=== PATIENT | female | born 1960 | race Caucasian/White ===

== ENCOUNTER 2018-05-14 19:37 | Emergency (ER) | payer SELFPAY ==
--- NOTE | 2018-05-14 21:21 | ER ---
Nurse's Notes [facility] Name: Nicole Hoyos Age: 58 yrs Sex: Female : 1960 Arrival Date: 05/14/2018 Time: 19:39 Bed 16 Private MD: Mary Lou Diez H Diagnosis: Grieving Presentation: 05/14 19:49 Presenting complaint: Patient states: "I was told to say I was suicidal so I could be lp1 seen by a doctor"; Patient states recently in this hospital yesterday and requesting to be put back on mediations to help her deal with 's ; Denies wanting to hurt self but concerned for her health if not prescribed medications of Prozac, Ambien, Haldol, Abilify; Hx of depression and treated by [facility]. Transition of care: patient was not received from another setting of care. Onset of symptoms was May 14, 2018. Risk Assessment: Do you want to hurt yourself or someone else? Patient reports no desire to harm self or others. Initial Sepsis Screen: Does the patient meet any 2 criteria? No. Patient's initial sepsis screen is negative. Does the patient have a suspected source of infection? No. Patient's initial sepsis screen is negative. Care prior to arrival: None. 19:49 Method Of Arrival: Ambulatory lp1 19:49 Acuity: DASHAWN 2 lp1 Triage Assessment: 22:17 General: Appears. aa1 Historical: - Allergies: 19:53 Sulfa (Sulfonamide Antibiotics); lp1 - Home Meds: 19:53 None [Active]; lp1 - PMHx: 19:53 Anxiety; Depression; Schizophrenia; lp1 - PSHx: 19:53 Appendectomy; Tonsillectomy; lp1 - Immunization history:: Adult Immunizations up to date. - Social history:: Smoking status: Patient/guardian denies using tobacco. - Ebola Screening: : No symptoms or risks identified at this time. Screenin:15 Abuse screen: Denies threats or abuse. Denies injuries from another. Nutritional aa1 screening: No deficits noted. Tuberculosis screening: No symptoms or risk factors identified. Fall Risk None identified. Assessment: 20:15 Reassessment: Pt reports that she does not wish to harm herself. States she is just aa1 grieving and is upset over the loss of her and would like to be prescribed medication to help with her emotions and see a psychiatrist on an outpatient basis. General: Appears in no apparent distress. comfortable, Behavior is calm, cooperative, appropriate for age. Pain: Denies pain. Neuro: Level of Consciousness is awake, alert, obeys commands, Oriented to person, place, time, situation, Moves all extremities. Speech is normal. Respiratory: Airway is patent Respiratory effort is even, unlabored, Respiratory pattern is regular, symmetrical. GI: No signs and/or symptoms were reported involving the gastrointestinal system. : No signs and/or symptoms were reported regarding the genitourinary system. EENT: No signs and/or symptoms were reported regarding the EENT system. Derm: Skin is intact, is healthy with good turgor, Skin is pink, warm \\T\\ dry. Musculoskeletal: Circulation, motion, and sensation intact. Capillary refill < 3 seconds. 21:30 Reassessment: Patient appears in no apparent distress at this time. Patient is alert, aa1 oriented x 3, equal unlabored respirations, skin warm/dry/pink. Pt again denies any thoughts of harming herself or others. Reports she has strong family support system and will f/u with [facility] as outpatient to continue her medications. Denies questions or concerns regarding d/c \\T\\ f/u instructions. Psych: 20:15 Subjective: Patient's mood is sad, Delusions are denied, Hallucinations are denied aa1 Having thoughts of grief but denies suicidal or homicidal thoughts. Objective: Patient is cooperative, Speech is normal, Affect is appropriate. Suicide Risk Assessment: Sad Person Scale: Sex of patient: Female: Score 0 points. Age of patient: Score 0 point if patient falls outside of specified age parameters. Depression: Score 1 point if signs of depression are present. Previous Attempt: Score 0 point if patient has not previously attempted suicide. Substance Abuse: Score 0 point if patient does not abuse alcohol or drugs. Rational Thinking: Score 0 point if patient has rational thinking. Social Support: Score 0 if social support is present/available. Organized Plan: Score 0 if patient did not have an organized plan in place. Relationship: Score 1 point if patient is , , , or for a single male Chronic Sickness: Score 0 point if patient does not have a chronic illness, debilitating, or severe disorder. TOTAL POINTS: If total points are 0-2, proposed clinical action is to send home with follow-up. Safety Checks: Door is open. Pt denies substance abuse. Commitment: n/a. Vital Signs: 19:53 BP 140 / 101; Pulse 83; Resp 18; Temp 98.6; Pulse Ox 99% on R/A; Weight 90.72 kg; lp1 Height 5 ft. 10 in. (177.80 cm); 21:30 BP 146 / 82; Pulse 73; Resp 18; Pulse Ox 99% on R/A; aa1 19:53 Body Mass Index 28.70 (90.72 kg, 177.80 cm) lp1 ED Course: 19:39 Patient arrived in ED. es 19:40 Mary Lou Diez DO is Private Physician. es 19:52 Triage completed. lp1 19:54 Arm band placed on right wrist. lp1 19:59 Graham Cruz MD is Attending Physician. ps1 20:15 Patient has correct armband on for positive identification. Bed in low position. Call aa1 light in reach. Pulse ox on. NIBP on. 21:18 Mary Lou Diez DO is Referral Physician. ps1 21:30 Caryl Martinez, RN is Primary Nurse. aa1 21:30 No provider procedures requiring assistance completed. Patient did not have IV access aa1 during this emergency room visit. Administered Medications: 21:30 Drug: Ativan 1 mg Route: PO; aa1 21:30 Follow up: Response: No adverse reaction; Medication administered at discharge. aa1 Outcome: 21:20 Discharge ordered by . ps1 21:30 Discharged to home ambulatory. aa1 21:30 Condition: good 21:30 Discharge instructions given to patient, Instructed on discharge instructions, follow up and referral plans. medication usage, Demonstrated understanding of instructions, follow-up care, medications, Prescriptions given X 1. 21:31 Patient left the ED. aa1 Signatures: Caryl Martinez, RN RN aa1 Rosa Urena Laura, RN RN lp1 Graham Cruz MD MD ps1
--- NOTE | 2018-05-14 21:21 | EDPHYS ---
Physician Documentation [facility] Name: Nicole Hoyos Age: 58 yrs Sex: Female : 1960 Arrival Date: 05/14/2018 Time: 19:39 Bed 16 Private MD: Mary Lou Diez H ED Physician Graham Cruz HPI: 05/14 21:08 This 58 yrs old Female presents to ER via Ambulatory with complaints of ps1 grieving. 21:08 patient's in ICU yesterday. Patient has a previous psychiatric history in ps1 which she does not take her medications 2/2 coordinating transporation. She states that the pain of grieving is considerable. She was on the phone and told to tell the hospital that she was wanting to hurt herself so that she can get medications. Upon speaking with the patient and reassured her that I would give her medications and treat her, she denied the statements and said she just wanted to be treated. . Historical: - Allergies: 19:53 Sulfa (Sulfonamide Antibiotics); lp1 - Home Meds: 19:53 None [Active]; lp1 - PMHx: 19:53 Anxiety; Depression; Schizophrenia; lp1 - PSHx: 19:53 Appendectomy; Tonsillectomy; lp1 - Immunization history:: Adult Immunizations up to date. - Social history:: Smoking status: Patient/guardian denies using tobacco. - Ebola Screening: : No symptoms or risks identified at this time. ROS: 21:08 Constitutional: Negative for fever, chills, and weight loss, Eyes: Negative for injury, ps1 pain, redness, and discharge, Cardiovascular: Negative for chest pain, palpitations, and edema, Respiratory: Negative for shortness of breath, cough, wheezing, and pleuritic chest pain, Abdomen/GI: Negative for abdominal pain, nausea, vomiting, diarrhea, and constipation, Back: Negative for injury and pain, MS/Extremity: Negative for injury and deformity, Skin: Negative for injury, rash, and discoloration, Neuro: Negative for headache, weakness, numbness, tingling, and seizure. 21:08 Psych: Positive for anxiety, grief. Exam: 21:08 Constitutional: This is a well developed, well nourished patient who is awake, alert, ps1 and in no acute distress. Head/Face: Normocephalic, atraumatic. Eyes: Pupils equal round and reactive to light, extra-ocular motions intact. Lids and lashes normal. Conjunctiva and sclera are non-icteric and not injected. Chest/axilla: Normal chest wall appearance and motion. Nontender with no deformity. No lesions are appreciated. Cardiovascular: Regular rate and rhythm. No gallops, murmurs, or rubs. Normal PMI, no JVD. No pulse deficits. Respiratory: Lungs have equal breath sounds bilaterally, clear to auscultation and percussion. No rales, rhonchi or wheezes noted. No increased work of breathing, no retractions or nasal flaring. Abdomen/GI: Soft, non-tender, with normal bowel sounds. No distension or tympany. No guarding or rebound. No evidence of tenderness throughout. MS/ Extremity: Pulses equal, no cyanosis. Neurovascular intact. Full, normal range of motion. Neuro: Awake and alert, GCS 15, oriented to person, place, time, and situation. Cranial nerves II-XII grossly intact. Sensory grossly intact. 21:08 Psych: Behavior/mood is pleasant, cooperative, appropriate grief. . Affect is calm, Oriented to person, place, time, Patient has no thoughts/intents to harm self or others. Judgement / Insight is normal. Memory is normal. Delusions/hallucinations are not present. Vital Signs: 19:53 BP 140 / 101; Pulse 83; Resp 18; Temp 98.6; Pulse Ox 99% on R/A; Weight 90.72 kg; lp1 Height 5 ft. 10 in. (177.80 cm); 21:30 BP 146 / 82; Pulse 73; Resp 18; Pulse Ox 99% on R/A; aa1 19:53 Body Mass Index 28.70 (90.72 kg, 177.80 cm) lp1 MDM: 20:49 Patient medically screened. ps1 21:08 Data reviewed: vital signs, nurses notes, and as a result, I will discharge patient, ps1 give 5 days supply of ativan. Patient did not demonstrate or verbalize suicidal ideation. She is alert and oriented and able to make decisions on her own. She denied the statements that she made because she did not think that she would be treated. . Administered Medications: 21:30 Drug: Ativan 1 mg Route: PO; aa1 21:30 Follow up: Response: No adverse reaction; Medication administered at discharge. aa1 Disposition: 05/14/18 21:20 Discharged to Home. Impression: Grieving. - Condition is Stable. - Discharge Instructions: Complicated Grieving. - Prescriptions for Ativan 0.5 mg Oral Tablet - take 1 tablet by ORAL route every 8 hours As needed; 20 tablet. - Medication Reconciliation Form, Thank You Letter, Antibiotic Education, Prescription Opioid Use form. - Follow up: Mary Lou Diez DO; When: As needed; Reason: Recheck today's complaints, Continuance of care, Re-evaluation by your physician. Follow up: Emergency Department; When: As needed; Reason: symptoms worsen. If you develop symptoms of suicidal ideation or have a plan, call 911 and seek medical care immediately. . - Problem is new. - Symptoms have improved. Signatures: Caryl Martinez RN RN aa1 Anu Morrison RN RN lp1 Graham Cruz MD MD ps1 Corrections: (The following items were deleted from the chart) 21:31 21:20 05/14/2018 21:20 Discharged to Home. Impression: Grieving. Condition is Stable. aa1 Forms are Medication Reconciliation Form, Thank You Letter, Antibiotic Education, Prescription Opioid Use. Follow up: Mary Lou Diez; When: As needed; Reason: Recheck today's complaints, Continuance of care, Re-evaluation by your physician. Follow up: Emergency Department; When: As needed; Reason: symptoms worsen. If you develop symptoms of suicidal ideation or have a plan, call 911 and seek medical care immediately. . Problem is new. Symptoms have improved. ps1
[2018-05-14] MEDS ORDERED: LORAZEPAM 1 MG TABLET ONE (21:29)
== END 2018-05-14 21:31 | disposition home or self-care (01) ==
LOC: ER 19:37
DX: F43.21 Adjustment disorder with depressed mood (principal); Z88.2 Allergy status to sulfonamides
CPT/HCPCS: 99284

== ENCOUNTER 2020-01-07 17:17 | Emergency (ER) | payer SELFPAY ==
--- NOTE | 2020-01-07 18:06 | ER ---
Nurse's Notes [facility] Name: Nicole Hoyos Age: 59 yrs Sex: Female : 1960 Arrival Date: 01/07/2020 Time: 17:25 Bed Waiting [facility] MD: Diagnosis: ED Course: 01/06 17:25 Patient arrived in ED. mr Administered Medications: No medications were administered Outcome: 18:05 Patient left the ED. hb Signatures: Maty Roberts Heather, RN RN hb
== END 2020-01-07 18:05 | disposition left against medical advice (07) ==
LOC: ER 17:17
DX: Z02.9 Encounter for administrative examinations, unspecified (principal); Z53.21 Procedure and treatment not carried out due to patient leaving prior to being seen by health care provider